=== PATIENT | male | born 1960 | race Hispanic/Latino ===

== ENCOUNTER → 2023-03-19 | Outpatient (CLI) | payer BC ==
[2023-03-19 12:30] LABS: HEMOGLOBIN A1C 6.6 % (4.0-6.0)
[2023-03-19 12:55] LABS: CHOLESTEROL 100 mg/dL (<200); HDL CHOLESTEROL 48 mg/dL (29-71); LDL DIRECT 51 mg/dL (0-99); TRIGLYCERIDES 108 mg/dL (30-200)
== END | disposition home or self-care (01) ==
LOC: LAB 11:09
PROVIDERS: ATTEND Student in an Organized Health Care Education/Training Program
DX: I25.118 Atherosclerotic heart disease of native coronary artery with other forms of angina pectoris (principal); I10 Essential (primary) hypertension
CPT/HCPCS: 36415; 80061; 83036

== ENCOUNTER → 2023-06-10 | Outpatient (CLI) | payer BC | END | disposition home or self-care (01) | LOC: SHCH 09:23 | PROVIDERS: ATTEND Student in an Organized Health Care Education/Training Program | DX: I10 Essential (primary) hypertension (principal); E78.5 Hyperlipidemia, unspecified; E11.9 Type 2 diabetes mellitus without complications | CPT/HCPCS: 93306 ==

== ENCOUNTER → 2023-08-18 | Outpatient (CLI) | payer BC | END | disposition home or self-care (01) | LOC: RAH 10:29 | PROVIDERS: ATTEND Internal Medicine | DX: K57.92 Diverticulitis of intestine, part unspecified, without perforation or abscess without bleeding (principal); M47.815 Spondylosis without myelopathy or radiculopathy, thoracolumbar region; I25.10 Atherosclerotic heart disease of native coronary artery without angina pectoris; R16.0 Hepatomegaly, not elsewhere classified; K76.0 Fatty (change of) liver, not elsewhere classified; K44.9 Diaphragmatic hernia without obstruction or gangrene | CPT/HCPCS: 74176 ==

== ENCOUNTER → 2024-02-11 | Outpatient (CLI) | payer BC ==
[2024-02-11 12:54] LABS: ALBUMIN 3.7 g/dL (3.5-5.0); BILIRUBIN,TOTAL 0.4 mg/dL (0.2-1.0); CREATININE 1.3 mg/dL (0.5-1.3); POTASSIUM 4.7 mmol/L (3.5-5.1); TOTAL PROTEIN, SERUM 6.8 g/dL (6.0-8.3)
[2024-02-11 13:04] LABS: HEMOGLOBIN A1C 7.4 % (4.0-6.0)
== END | disposition home or self-care (01) ==
LOC: LAB 08:44
PROVIDERS: ATTEND Student in an Organized Health Care Education/Training Program
DX: I11.9 Hypertensive heart disease without heart failure (principal); E11.9 Type 2 diabetes mellitus without complications
CPT/HCPCS: 36415; 80053; 80061; 83036

== ENCOUNTER → 2024-02-22 | Outpatient (CLI) | payer BC ==
[~2024-02-22] VITALS: Ht 165.1 cm; Wt 89.8 kg
[~2024-02-22] MED LIST: ALPR0.255 PO; ASPI-1443 PO; ATOR-2 PO; CARV12.511 PO; CLON0.1T PO; CLOP-31 PO; HYDR-4068 PO; HYDR25TA PO; IBUP-2071 PO; LISI40TA9 PO; METF-446 PO; PANT40TA54 PO; TRAMADOL PO
[2024-02-22 12:26] VITALS: BP 137/70; PULSE 50; RESP 18; TEMP 98.1
[2024-02-22 12:40] LABS: BASOPHILS # (AUTO) 0.01 K/uL (0.00-0.20); BASOPHILS % (AUTO) 0.1 % (0.0-5.0); EOSINOPHILS # (AUTO) 0.12 K/uL (0.00-0.70); EOSINOPHILS % (AUTO) 1.7 % (0.0-8.0); HEMATOCRIT 31.1 % (42-54); IMMATURE GRANULOCYTE ABSOLUTE 0.01 K/uL (0-1); LYMPHOCYTES # (AUTO) 1.6 K/uL (1.0-4.8); LYMPHOCYTES % (AUTO) 23.3 % (21.0-51.0); MEAN CORPUSCULAR HEMOGLOBIN 25.6 pg (27.0-33.0); MEAN CORPUSCULAR HGB CONC 31.2 g/dL (32.0-36.0); MEAN CORPUSCULAR VOLUME 82.1 fL (79-99); MONOCYTES # (AUTO) 0.6 K/uL (0.1-1.0); MONOCYTES % (AUTO) 8.3 % (3.0-13.0); NEUTROPHILS # (AUTO) 4.6 K/uL (1.8-7.7); NEUTROPHILS % (AUTO) 66.5 % (40.0-77.0); PLATELET COUNT (AUTO) 187 K/uL (130-400); RED BLOOD CELL COUNT(AUTO) 3.79 MIL/uL (4.50-6.20); RED CELL DISTRIBUTION WIDTH 16.6 % (11.0-15.5); WHITE BLOOD COUNT (AUTO) 6.9 K/uL (4.8-10.8)
--- NOTE | 2024-02-22 12:40 | EKG ---
[facility] Test Date: 2024-02-22 Test Time: 13:06:49 Pat Name: VERA BOSCH Department: [facility], [facility]–1983 Room: Gender: M Brain Picker: [id number] : 1960 Requested By: NELIA TITUS Order Number: [id number] Reading MD: Lucy Mcclure Measurements Intervals [place] Rate: 52 P: 48 SC: 208 QRS: 50 QRSD: 83 T: 72 QT: 437 QTc: 406 Interpretive Statements Sinus rhythm Posterior infarct, old No previous ECG available for comparison Electronically Signed On 02-23-2024 05:14:24 SENIOR SALES COMPENSATION ANALYST by Lucy Mcclure Please click the below link to view image of tracing.
[2024-02-22 12:54] LABS: CREATININE 1.5 mg/dL (0.5-1.3); POTASSIUM 4.4 mmol/L (3.5-5.1)
[2024-02-22 12:56] LABS: INR 1.02 (0.85-1.15)
[2024-02-22 12:57] LABS: PARTIAL THROMBOPLASTIN TIME 25.1 SEC (26.3-35.5)
[2024-02-22 13:00] LABS: B-TYPE NATRIURETIC PEPTIDE 168 pg/mL (0-100)
--- NOTE | 2024-02-22 13:02 | HMCIMG ---
Widely windowing by REASON: Surgical clearance COMPARISON: None FINDINGS: Single view of the chest was obtained. Lungs are clear. Heart size is normal. There is no pulmonary vascular congestion. Mediastinum and bony thorax appear unremarkable. There has been a previous sternotomy. IMPRESSION: 1. No acute process seen in the chest.
--- NOTE | 2024-02-23 11:49 | NUR ---
RE: LABS REPORTED BUN 21, CREAT 1.[address] NELIA TITUS. RECEIVED ORDERS TO RESCHEDULE PROCEDURE FOR 03/24/24.
== END | disposition home or self-care (01) ==
LOC: DAH 10:00 → EDSTATUS 03-24 09:00
PROVIDERS: ATTEND Student in an Organized Health Care Education/Training Program
DX: Z01.818 Encounter for other preprocedural examination (principal); I25.10 Atherosclerotic heart disease of native coronary artery without angina pectoris; R94.31 Abnormal electrocardiogram [ECG] [EKG]
CPT/HCPCS: 36415; 71045; 80048; 83880; 85025; 85610; 85730; 93005

== ENCOUNTER 2024-03-30 09:37 | Day surgery (SDC) | payer BC ==
[2024-03-28 12:47] LABS: BASOPHILS # (AUTO) 0.02 K/uL (0.00-0.20); BASOPHILS % (AUTO) 0.3 % (0.0-5.0); EOSINOPHILS % (AUTO) 1.4 % (0.0-8.0); HEMATOCRIT 34.1 % (42-54); IMMATURE GRANULOCYTE ABSOLUTE 0.02 K/uL (0-1); LYMPHOCYTES # (AUTO) 2.1 K/uL (1.0-4.8); LYMPHOCYTES % (AUTO) 28.4 % (21.0-51.0); MEAN CORPUSCULAR HGB CONC 30.8 g/dL (32.0-36.0); MEAN CORPUSCULAR VOLUME 81.2 fL (79-99); MONOCYTES # (AUTO) 0.6 K/uL (0.1-1.0); MONOCYTES % (AUTO) 8.6 % (3.0-13.0); NEUTROPHILS # (AUTO) 4.5 K/uL (1.8-7.7); PLATELET COUNT (AUTO) 198 K/uL (130-400); WHITE BLOOD COUNT (AUTO) 7.3 K/uL (4.8-10.8)
[2024-03-28 12:58] LABS: CREATININE 1.4 mg/dL (0.5-1.3); POTASSIUM 4.6 mmol/L (3.5-5.1)
[2024-03-28 13:02] LABS: INR 0.96 (0.85-1.15); PROTHROMBIN TIME 10.8 SEC (9.6-11.6)
[2024-03-28 13:04] LABS: PARTIAL THROMBOPLASTIN TIME 24.8 SEC (26.3-35.5)
[2024-03-28 13:19] LABS: B-TYPE NATRIURETIC PEPTIDE 76 pg/mL (0-100)
[2024-03-28 13:48] VITALS: BP 124/71; PULSE 55; RESP 18; TEMP 98
--- NOTE | 2024-03-28 13:49 | EKG ---
[facility] Test Date: 2024-03-28 Test Time: 13:35:14 Pat Name: VERA BOSCH Department: [facility] Room: Gender: M Nuclear Supervising Operator: [id number] : 1960 Requested By: NELIA TITUS Order Number: [id number] Reading MD: Byron Zaragoza Measurements Intervals [place] Rate: 57 P: 25 DC: 216 QRS: 48 QRSD: 83 T: 67 QT: 409 QTc: 399 Interpretive Statements Sinus rhythm Borderline prolonged DC interval Compared to ECG 02/22/2024 13:06:49 Myocardial infarct finding no longer present Electronically Signed On 03-28-2024 20:58:29 ADVERTISING SALES REPRESENTATIVE by Byron Zaragoza Please click the below link to view image of tracing.
--- NOTE | 2024-03-28 14:53 | HMCIMG ---
CHEST 1VW HISTORY: Preop COMPARISON: 02/22/2024 FINDINGS: A frontal projection of the chest was obtained. No acute pulmonary infiltrates is seen. The heart is normal in size. Prominent interstitial markings are seen. Degenerative changes are seen. Aortic calcifications are seen. IMPRESSION: 1. No acute pulmonary infiltrate is seen.
--- NOTE | 2024-03-29 11:34 | NUR ---
REPORT REPORTED CREAT AND H&H TO DR Usman TITUS. OK TO PROCEED
[2024-03-30] VITALS (16 sets, daily range): BP systolic 125–156; BP diastolic 55–82; PULSE 47–53; RESP 16–18; TEMP 97.2–1407.6
[~2024-03-30] VITALS: Ht 165.1 cm; Wt 87.1 kg
[2024-03-30] MEDS: 0.9%NACL 1000ML 1,000 ML IV SCH (10:49)
[2024-03-30] MEDS ORDERED: LIDOCAINE HCL 400MG/20ML VIAL ONE (11:28)
[2024-03-30] MEDS ORDERED: IOHEXOL 350 MG/ML 100ML INFUS..BTL IV ONE (11:29)
[2024-03-30] MEDS ORDERED: HEParin 10,000 UNIT/10ML (1,000 UNIT/ML) VIAL ONE (11:29)
[2024-03-30] MEDS ORDERED: HEParin-NS 1,000 UNIT/500 ML 1,000 ML IV ONE (11:29)
[2024-03-30] MEDS ORDERED: VERAPAMIL HCL 2.5 MG/ML VIAL ONE (11:29)
[2024-03-30] MEDS ORDERED: NITROGLYCERIN 50MG VIAL ONE (11:29)
[2024-03-30] MEDS ORDERED: FENTanyl CITRate PF 50 MCG/1 ML 2ML VIAL ONE (11:53)
[2024-03-30] MEDS ORDERED: MIDAZOLAM HCL 1 MG/ML 2ML VIAL ONE ×2 (11:53→12:38)
--- NOTE | 2024-03-30 13:27 | PRN ---
PROCEDURE REPORT DATE OF PROCEDURE: Mar 30, 2024 ORACLE HYPERION CONSULTANT: [ Thee chandra MD] PROCEDURE PERFORMED: Conscious sedation Ultrasound guided left radial artery access Selective left coronary artery angiogram Selective right coronary artery angiogram Left heart catheterization Left subclavian angiogram YIN to LAD angiography SVG to OM angiography SVG to PDA angiography TR band 13 juliette over right radial artery INDICATION: Chest pain DESCRIPTION OF PROCEDURE: After informed consent was obtained, the patient was prepped and draped in the usual sterile fashion. A 6 Chinese arterial sheath was inserted in the LEFT radial artery using ultrasound guidance with first pass wall puncture. The arterial sheath was aspirated and flushed. We have asked 035 wire into the left subclavian into the ascending aorta under fluoroscopic guidance. We then advanced a five Chinese Bartorelli cathter which was advanced to the left subclavian artery followed by an angiographic image of the left subclavian. We then used the Bartorelli catheter to selectively engage the YIN followed by multiple angiographic images . We exchanged the diagnostic catheter for a A 6 Chinese JL 3.5 was then advanced to the ascending aorta over an exchange length J-tip guidewire, was aspirated and flushed, and was used for selective coronary angiograms in multiple obliquities. A JR-4 was advanced in a similar fashion to the ascending aorta over the J-tipped guidewire and was used for selective right coronary angiograms in multiple oblique views with findings as outlined below. The JR-4 catheter advanced into the LV and pressures were obtained with a pull- back across the aortic valve. We then used the JR4 catheter selecting gaze SVG to PDA graft followed by angiographic images. We then used the same JR4 catheter selecting gaze SVG to OM graft followed by multiple angiographic images. Following review of all the studies the decision was made to terminate the procedure and proceed with medical management. All wires and catheters removed and A TR band was placed over right radial artery. Patient tolerated procedure well with no postprocedure complications transfer rags laborer holding in stable condition FLUOROSCOPY TIME: 7.7 min LEFT HEART HEMODYNAMICS: LVEDP 8 mm Hg and no gradient Ao CORONARY ANGIOGRAM: LEFT MAIN: Patent and 0% stenosis. Gives rise to LCx and LAD. LEFT ANTERIOR DESCENDING: Large vessel giving rise to two Diagonal branches. Small-vessel becoming heavily calcified in the mid segment followed by 100% LABORER CHEMICAL PROCESSING. LAD is small approximately 2 mm in diameter. D1 and D2 are small and widely patent LEFT CIRCUMFLEX: Large and gives rise to two OM branches. Heavily calcified with 100% LABORER CHEMICAL PROCESSING of the proximal segment. OMs fill via collateral flow via the SVG graft. OM2 has a 90% proximal stenosis and feels via patent graft RIGHT CORONARY ARTERY: Large, dominant vessel giving rise to PDA and PL branches. Heavily calcified with a patent proximal stent with 40% ISR becoming 100% LABORER CHEMICAL PROCESSING of the mid segment. LEFT SUBCLAVIAN: Widely patent GRAFT ANATOMY: YIN-LAD: Small graft diameter and is widely patent SVG-OM: Patent was sluggish flow due to a kink in the mid segment. SVG-PDA: Widely patent HEMOSTASIS: TR band 12 juliette over right radial artery INTERVENTIONS: None. COMPLICATIONS: None FINDINGS: Normal coronary anatomy with severe multivessel Coronary Artery Disease and patent YIN to LAD, SVG to OM2, and SVG to PDA ESTIMATED BLOOD LOSS: 5 cc RECOMMENDATIONS/INSTRUCTIONS: Aggressive risk factor modification along with prolonged dropped and high- intensity statin therapy and beta-you We will consider exercise treadmill stress test and if there is any evidence of ischemia we will consider staged revascularization of his SVG to OM kink. CONTRAST DELIVERED TO PATIENT (mL): 140cc MD TACHO Cheung JAMES R MD Mar 30, 2024 13:27
[2024-03-30] MEDS ORDERED: 0.9%NACL 1000ML 1,000 ML IV SCH (13:30)
[2024-03-30] MEDS ORDERED: GLUCAGON 1MG KIT 1 MG ML IM PRN (13:30)
[2024-03-30] MEDS ORDERED: DEXTROSE 50%-WATER 50 ML DISP.SYRIN IV PRN (13:30)
--- NOTE | 2024-03-30 14:15 | NUR ---
HANDOFF REPORT RECEIVED REPORT FROM SHARI BARRIOS AT BEDSIDE USING SBAR. PATIENT S/P LHC, VASC BAND TO LEFT WRIST. NO BLEEDING OR HEMATOMA NOTED. SPOUSE AT BEDSIDE. VITAL SIGNS STABLE, NO C/O PAIN.
[2024-03-30] MEDS ORDERED: acetaMINOPHEN 325 MG TAB ONE (16:37)
[2024-03-30] MEDS: acetaMINOPHEN 325 MG TAB PO ONE (16:44)
--- NOTE | 2024-03-30 17:30 | NUR ---
PATIENT DISCHARGED FROM FACILITY VIA WHEELCHAIR BY SHARI KINGSTON AND ASSISTED INTO PRIVATE VEHICLE DRIVEN BY SPOUSE
== END 2024-03-30 17:30 | disposition home or self-care (01) ==
LOC: DAH 09:37
PROVIDERS: ATTEND Student in an Organized Health Care Education/Training Program
DX: I25.118 Atherosclerotic heart disease of native coronary artery with other forms of angina pectoris (principal); I25.82 Chronic total occlusion of coronary artery; I49.3 Ventricular premature depolarization; E78.5 Hyperlipidemia, unspecified; I11.9 Hypertensive heart disease without heart failure; E11.9 Type 2 diabetes mellitus without complications; I25.2 Old myocardial infarction; Z98.890 Other specified postprocedural states; Z90.49 Acquired absence of other specified parts of digestive tract; Z82.49 Family history of ischemic heart disease and other diseases of the circulatory system; Z83.3 Family history of diabetes mellitus; Z82.3 Family history of stroke; Z79.01 Long term (current) use of anticoagulants; Z95.5 Presence of coronary angioplasty implant and graft; Z95.1 Presence of aortocoronary bypass graft; Z79.84 Long term (current) use of oral hypoglycemic drugs; Z79.82 Long term (current) use of aspirin; Z79.899 Other long term (current) drug therapy
CPT/HCPCS: 80048; 83880; 85025; 85610; 85730; 71045; 93005; 93459; 82948; C1769; C1887; C1894 ×2; A4649; Q9965 ×2; J3010; J3490 ×3; J7030; J1644 ×2; J2250 ×2; Q9967; A4215; A4222; A4221; A4663; A4216; A4606; A4223 ×3; 99156; 99157

== ENCOUNTER 2024-04-01 11:41 | Observation (INO) | payer BC ==
[~2024-04-01] VITALS: Ht 165.1 cm; Wt 88.5 kg
--- NOTE | 2024-04-01 11:54 | ERN ---
ED Note History of Present Illness Stated Complaint: CP Chief Complaint: Chest Pain Time Seen by MD: 11:48 Dictation: PATIENT IS A 63-YEAR-OLD MALE COMING IN TODAY WITH CHEST PAIN PRESSURE TO HIS LEFT CHEST ONSET LAST NIGHT AT 21:00 HOURS WHILE HE WAS IN BED. HE DENIES ANY RADIATION NO SHORTNESS A BREATH STATES THE PAIN CURRENTLY IS NINE OVER A 10. HE STATES HE HAS A HISTORY OF CAD WITH CABG X3 IN THE PAST, HAD A HEART CATHETERIZATION LAST MONTH AT BY DR. NELIA TITUS. HE STATES HE DID TAKE A NITROGLYCERIN THIS MORNING WHICH HE SAID HELPED A LOT. PATIENT STATES HE CURRENTLY TAKES ASPIRIN DAILY WITH PLAVIX Allergies: Coded Allergies: No Known Drug Allergies (Unverified Allergy, Unknown, 02/22/24) Home Meds Active Scripts Acetaminophen with Codeine (Acetaminophen-Cod #3 Tablet) 300 Mg-30 Mg Tablet, 1 TAB PO Q4H PRN for MODERATE TO SEVERE PAIN, #12 TAB 0 Refills Prov:SANDY JAMES NP 04/01/24 Reported Medications [Tramadol] No Conflict Check, 50 MG PO QID PRN for PAIN 02/22/24 Aspirin (Aspirin EC) 81 Mg Tablet., 1 TAB PO DAILY for 30 Days, #30 TAB 0 Refills 02/22/24 Clopidogrel Bisulfate (Plavix) 75 Mg Tablet, 1 TAB PO DAILY for 30 Days, #30 TAB 0 Refills 02/22/24 Atorvastatin Calcium (Atorvastatin Calcium) 80 Mg Tablet, 1 TAB PO DAILY for 30 Days, #30 TAB 0 Refills 02/22/24 Ibuprofen (Ibuprofen) 800 Mg Tablet, 1 TAB PO TID for pain for 10 Days, #30 TAB 0 Refills 02/22/24 Pantoprazole Sodium (Pantoprazole Sodium) 40 Mg Tablet., 1 TAB PO DAILY for 30 Days, #30 TAB 0 Refills 02/22/24 Hydrochlorothiazide (Hydrochlorothiazide) 25 Mg Tablet, 1 TAB PO DAILY for 30 Days, #30 TAB 0 Refills 02/22/24 Metformin HCl (Metformin HCl) 1,000 Mg Tablet, 1 TAB PO BID for 30 Days, #60 TAB 0 Refills 02/22/24 Hydrocodone/Acetaminophen (Hydrocodon-Acetaminophn 10-325) 10 Mg-325 Mg Tablet, 1 TAB PO Q6HPRN PRN for pain for 5 Days, #20 TAB 0 Refills 02/22/24 Clonidine HCl (Clonidine HCl) 0.1 Mg Tablet, 1 TAB PO QID PRN for ADMINISTER FOR SBP > 180 for 30 Days, #30 TAB 0 Refills 02/22/24 Carvedilol (Carvedilol) 12.5 Mg Tablet, 1 TAB PO BID for 30 Days, #60 TAB 0 Refills 02/22/24 Alprazolam (Alprazolam) 0.25 Mg Tablet, 1 TAB PO HS PRN for anxiety for 30 Days, #60 TAB 0 Refills 02/22/24 Lisinopril (Lisinopril) 40 Mg Tablet, 40 MG PO BID, TAB 02/22/24 Past Medical History Past Medical History: CAD Surgical History: CABG RN Note Reviewed/Agreed w/PFSH: Yes Review of System Dictation CONSTITUTIONAL: NEGATIVE EXCEPT FOR HPI HEAD/FACE: NEGATIVE EXCEPT FOR HPI EENT: NEGATIVE EXCEPT FOR HPI RESPIRATORY: NEGATIVE EXCEPT FOR HPI LEFT CHEST PAIN/PRESSURE GASTROINTESTINAL/ABDOMINAL: NEGATIVE EXCEPT FOR HPI GENITOURINARY: NEGATIVE EXCEPT FOR HPI MUSCULOSKELETAL: NEGATIVE EXCEPT FOR HPI INTEGUMENTARY: NEGATIVE EXCEPT FOR HPI NEUROLOGICAL/PSYCH: NEGATIVE EXCEPT FOR HPI HEMATOLOGIC/LYMPHATIC: NEGATIVE EXCEPT FOR HPI ALL SYSTEMS NEGATIVE, EXCEPT NOTED ABOVE. 13 POINT REVIEW OF SYSTEMS ASSESSED AND ALL NEGATIVE EXCEPT FOR ABOVE. Initial Vital Sign VS Vital Signs Date Time Temp Pulse Resp B/P (MAP) Pulse Ox O2 Delivery O2 Flow Rate FiO2 04/01/24 11:49 98.2 57 18 119/61 99 04/01/24 13:38 Nasal Cannula* 2 28 Physical Exam Dictation VITAL SIGNS REVIEWED GENERAL APPEARANCE: ALERT, ORIENTED X 3, MODERATE ACUTE DISTRESS, WELL DEVELOPED, NOURISHED. HEAD AND FACE: NON-TRAUMATIC. EYES: PERRL, PINK CONJUNCTIVAS, EYELID NO TRAUMA, ANTERIOR CHAMBER WITH ARCUS SENILIS. EARS: PINNAS INTACT AND NO SIGNS OF TRAUMA OR ERYTHEMA EAR CANALS CLEAR AND NO DISCHARGE TM NO ERYTHEMA NOSE: NO DISCHARGE, NO BLEEDING. OROPHARYNX: MOUTH NORMAL, TONGUE PINK, PHARYNX CLEAR,NO ERYTHEMA, TONSILS NO EXUDATES, NO ABSCESSES NOTED, MUCOUS MEMBRANE MOIST NECK: SUPPLE, NON-TENDER, NO THYROMEGALY, NO MASSES, NO JVD, NO BRUITS BREAST:DEFERRED CHEST:NO TENDERNESS, NO CREPITUS, NO PARADOXICAL MOVEMENT, NO RETRACTIONS LUNGS:CLEAR, WELL-VENTILATED, SYMMETRIC, NO RALES, NO WHEEZING, NO RHONCHI, NO STRIDOR, GOOD BREATH SOUNDS BILATERALLY HEART: REGULAR RATE, REGULAR RHYTHM, NO MURMUR, NO GALLOPS VASCULAR: NO PERIPHERAL EDEMA, ABDOMEN: SOFT, POSITIVE BOWEL SOUNDS, NONDISTENDED, NO GUARDING, NONTENDER, NO REBOUND, NO MASSES NO HEPATOMEGALY, NO SPLENOMEGALY, NO HUANG'S SIGN, NO HERNIAS. RECTAL: DEFERRED GENITAL: DEFERRED NEUROLOGICAL: NORMAL SPEECH, MOTOR FUNCTION INTACT, SENSORY FUNCTION INTACT MUSCULOSKELETAL: NECK NONTENDER, FULL RANGE OF MOTION, BACK NONTENDER, FULL RANGE OF MOTION, EXTREMITIES: NONTENDER, FULL RANGE OF MOTION SKIN: COLOR PINK, DRY, NO TURGOR, NO RASH, NO LACERATIONS, NO ABRASIONS, NO CONTUSIONS. LYMPHATIC: DEFERRED Results (Laboratory/Radiology) Laboratory/Radiology Laboratory Tests Test 04/01/24 12:10 04/01/24 15:00 White Blood Count 7.3 K/uL (4.8-10.8) Red Blood Count 4.27 MIL/uL (4.50-6.20) L Hemoglobin 10.6 g/dL (14.0-18.0) L Hematocrit 33.7 % (42-54) L Mean Corpuscular Volume 78.9 fL (79-99) L Mean Corpuscular Hemoglobin 24.8 pg (27.0-33.0) L Mean Corpuscular Hemoglobin Concent 31.5 g/dL (32.0-36.0) L Red Cell Distribution Width 14.7 % (11.0-15.5) Platelet Count 212 K/uL (130-400) Mean Platelet Volume 11.3 fL (7.5-10.5) H Immature Granulocyte % (Auto) 0.3 % (0-1) Neutrophils (%) (Auto) 68.3 % (40.0-77.0) Lymphocytes (%) (Auto) 23.0 % (21.0-51.0) Monocytes (%) (Auto) 6.3 % (3.0-13.0) Eosinophils (%) (Auto) 1.8 % (0.0-8.0) Basophils (%) (Auto) 0.3 % (0.0-5.0) Neutrophils # (Auto) 5.0 K/uL (1.8-7.7) Lymphocytes # (Auto) 1.7 K/uL (1.0-4.8) Monocytes # (Auto) 0.5 K/uL (0.1-1.0) Eosinophils # (Auto) 0.13 K/uL (0.00-0.70) Basophils # (Auto) 0.02 K/uL (0.00-0.20) Absolute Immature Granulocyte (auto 0.02 K/uL (0-1) Nucleated Red Blood Cells 0.0 % (0.0-0.19) Sodium Level 141 mmol/L (136-145) Potassium Level 4.6 mmol/L (3.5-5.1) Chloride Level 104 mmol/L (101-111) Carbon Dioxide Level 26 mmol/L (21-32) Blood Urea Nitrogen 23 mg/dL (7-18) H Creatinine 1.7 mg/dL (0.5-1.3) H Glomerular Filtration Rate Calc 45 mL/min (>90) Random Glucose 126 mg/dL (70-105) H Total Calcium 9.8 mg/dL (8.5-10.1) Magnesium Level 1.60 mg/dL (1.80-2.40) L Troponin I High Sensitivity 6 ng/L (4-75) 7 ng/L (4-75) B-Type Natriuretic Peptide 55 pg/mL (0-100) CHEST 1VW HISTORY: Chest pain COMPARISON: 03/28/2024 FINDINGS: A frontal projection of the chest was obtained. No acute pulmonary infiltrates is seen. Poststernotomy changes are seen. The heart is enlarged. Degenerative changes of the thoracolumbar spine are present. Prominent interstitial markings are seen. Aortic calcifications are seen. IMPRESSION: 1. No acute pulmonary infiltrate is seen. Labs Reviewed?: Yes EKG Comment: EKG SINUS BRADYCARDIA/HEART RATE 53/AXIS NORMAL/NO ECTOPY 1537, 2ND EKG SINUS RHYTHM WITH DC [id number] MILLISECOND/HEART RATE NO ACUTE CHANGES 52 HEART SCORE IS TWO ED Course ED Course Orders Procedure Category Date Status Time Cbc With Differential LAB 04/01/24 Complete 11:50 B-Type Natriuretic LAB 04/01/24 Complete Peptide 11:50 Chest 1vw RAD 04/01/24 Resulted 11:50 12 Lead Ekg Tracing- EKG 04/01/24 Logged Technical 11:50 Nitroglycerin 0.4mg PHA 12/21/24 In Process Sl Tab (Nitrostat) 12:00 Magnesium LAB 04/01/24 Complete 11:50 Troponin I High LAB 04/01/24 Complete Sensitivity 11:50 Basic Metabolic Panel LAB 04/01/24 Complete 11:50 Morphine 2mg Syg PHA 04/01/24 Complete (Morphine 2mg Syg) 12:00 Ondansetron 4mg Inj PHA 04/01/24 Complete (Zofran 4mg Inj) 12:00 Magnesium 2gm Premix PHA 04/01/24 In Process 50ml (Magnesium 2gm 13:00 Troponin I High LAB 04/01/24 Complete Sensitivity 14:25 12 Lead Ekg Tracing- EKG 04/01/24 Logged Technical 14:25 Ibuprofen 800 Mg Tab PHA 04/01/24 In Process (Motrin) 16:00 Current Medications Medications (Trade) Dose Ordered Sig/Chicho Route PRN Reason Start Time Stop Time Status Last Admin Dose Admin Ibuprofen (moTRIN) 800 mg ONCE ONCE PO 04/01/24 16:00 04/01/24 16:01 Magnesium Sulfate 50 ml @ 0 mls/hr PROTOCOL IV 04/01/24 13:00 05/01/24 12:59 04/01/24 15:11 Morphine Sulfate (morPHINE 2MG SYG) 2 mg ONCE ONCE IVP 04/01/24 12:00 04/01/24 12:01 DC 04/01/24 12:23 Nitroglycerin (Nitrostat) 0.4 mg Q5M PRN SL CHEST PAIN 04/01/24 12:00 04/01/24 12:23 Ondansetron HCl (zoFRAN 4MG INJ) 4 mg ONCE ONCE IVP 04/01/24 12:00 04/01/24 12:01 DC 04/01/24 12:22 Vital Signs Date Time Temp Pulse Resp B/P (MAP) Pulse Ox O2 Delivery O2 Flow Rate FiO2 04/01/24 13:38 53 18 96/55 98 Nasal Cannula* 2 28 04/01/24 11:49 98.2 57 18 119/61 99 16:00 HOURS, WE WILL PAGED DR. GOTTI FOR FURTHER GUIDELINES. PATIENT STATES THAT HE HAD HAD A HEART CATHETERIZATION LAST WEEK BY DR. TITUS AND WAS TOLD HE HAD MULTIPLE SEVERELY OCCLUDED VESSELS AND THAT IF THE PAIN GOT WORSE TO COME TO THE HOSPITAL, HE STATES HE SPOKE WITH DR. FROST OFFICE THIS MORNING AND WAS ADVISED TO COME TO THE EMERGENCY ROOM TO SEE DR. GOTTI. HEART Score Response (Comments) Value History: Low suspicion (0) 0 Age: > 65yrs (+2) 2 Initial Troponin: Normal limit (0) 0 Total 2 Medical Decision Making MDM MDM: DIFFERENTIAL DIAGNOSIS: ACS/AMI/HYPOMAGNESEMIA/ELECTROLYTE IMBALANCE/DEHYDRA DEHYDRATION/PNEUMONIA/BRONCHITIS RATIONALE: TESTS CONSIDERED AND ORDERED SECONDARY TO SHARED DECISION MAKING INCLUDE: EKG/LABS/RADIOLOGY PREVIOUS OUTSIDE RECORDS REVIEWED: OLD ER VISITS. REVIEWED RISK OF COMPLICATION AND/OR MORBIDITY OR MORTALITY OF PATIENT MANAGEMENT: NONE MEDICATIONS-PER MEDICATION RECONCILIATION NEED FOR HOSPITALIZATION: PATIENT DOES NOT MEET CRITERIA FOR HOSPITALIZATION. NO PATIENT REFUSED NEED FOR EMERGENCY MAJOR/MINOR SURGERY: NO THERE ARE NO SOCIAL CONCERNS WITH THIS PATIENT. PRESCRIPTION DRUG MANAGEMENT IBUPROFEN PRESCRIPTIONS WILL INCLUDE SYMPTOMATIC CARE PATIENT'S PRIOR EXTERNAL MEDICAL RECORDS FROM OTHER ER VISITS WERE REVIEWED BY ME INDICATED. PRIOR TESTING AND RESULTS FROM PREVIOUS VISITS WERE REVIEWED. PRIOR TESTS WERE TAKEN INTO ACCOUNT WITH MEDICAL DECISION MAKING AND RESOURCE UTILIZATION, INDEPENDENT HISTORIAN/HISTORIANS WERE USED TO OBTAIN COMPLETE MEDICAL HISTORY. I INDEPENDENTLY INTERPRETED THE TEST THAT WERE PERFORMED, RESULTS WERE REVIEWED BY ME AND CONSIDERED FINDINGS ON RADIOLOGY IF ORDERED. MEDICAL MANAGEMENT AND EXAMINATION INTERPRETATION DISCUSSIONS WERE HAD BY ME WITH OTHER QUALIFIED HEALTHCARE PROFESSIONALS INDICATED FOR THE PATIENT'S CARE. DX & DISP Disposition: Discharge Departure Impression: Primary Impression: Hypomagnesemia Additional Impressions: Chronic kidney disease, Chronic anemia Condition: Stable Scripts Acetaminophen with Codeine (Acetaminophen-Cod #3 Tablet) 300 Mg-30 Mg Tablet 1 TAB PO Q4H PRN for MODERATE TO SEVERE PAIN, #12 TAB 0 Refills Prov: SANDY JAMES ELECTROCARDIOGRAPH OPERATOR 04/01/24 Additional Instructions: Follow-up with primary care provider in 1 to 2 days. Take medications as directed here in the emergency room. Okay to continue home medications unless otherwise discussed during your visit in the emergency room today. Return to your nearest emergency room if symptoms worsen or if there is no improvement. Call 911 if you need immediate assistance. Take Tylenol or Motrin [id number] as needed and if no contraindications are present. Increase oral hydration. A wound culture or urine culture was ordered here in the emergency room department please follow-up with primary care provider and advise them to get repeat ports from our facility. If you had any Zaki wrap/splints that were applied here, please do not remove them until you see your primary care or specialty. Follow up with your primary care doctor in 1-2 days. Referrals: SARMAD MACIAS MD (PCP) Time of Disposition: 15:51 SANDY JAMES NP Apr 01, 2024 11:54 LENORE HUGHES MD Apr 01, 2024 16:02
[2024-04-01] MEDS: ondanSETRON 4MG INJ IVP ONE (12:22)
[2024-04-01 12:23] LABS: BASOPHILS # (AUTO) 0.02 K/uL (0.00-0.20); BASOPHILS % (AUTO) 0.3 % (0.0-5.0); EOSINOPHILS # (AUTO) 0.13 K/uL (0.00-0.70); EOSINOPHILS % (AUTO) 1.8 % (0.0-8.0); HEMATOCRIT 33.7 % (42-54); IMMATURE GRANULOCYTE ABSOLUTE 0.02 K/uL (0-1); LYMPHOCYTES # (AUTO) 1.7 K/uL (1.0-4.8); MEAN CORPUSCULAR HEMOGLOBIN 24.8 pg (27.0-33.0); MEAN CORPUSCULAR HGB CONC 31.5 g/dL (32.0-36.0); MEAN CORPUSCULAR VOLUME 78.9 fL (79-99); MONOCYTES # (AUTO) 0.5 K/uL (0.1-1.0); MONOCYTES % (AUTO) 6.3 % (3.0-13.0); NEUTROPHILS % (AUTO) 68.3 % (40.0-77.0); PLATELET COUNT (AUTO) 212 K/uL (130-400); RED BLOOD CELL COUNT(AUTO) 4.27 MIL/uL (4.50-6.20); RED CELL DISTRIBUTION WIDTH 14.7 % (11.0-15.5); WHITE BLOOD COUNT (AUTO) 7.3 K/uL (4.8-10.8)
[2024-04-01] MEDS: NITROGLYCERIN 0.4 MG SL TAB SL PRN (12:23)
[2024-04-01] MEDS: morPHINE 2 MG SYG IVP ONE (12:23)
--- NOTE | 2024-04-01 12:25 | HMCIMG ---
CHEST 1VW HISTORY: Chest pain COMPARISON: 03/28/2024 FINDINGS: A frontal projection of the chest was obtained. No acute pulmonary infiltrates is seen. Poststernotomy changes are seen. The heart is enlarged. Degenerative changes of the thoracolumbar spine are present. Prominent interstitial markings are seen. Aortic calcifications are seen. IMPRESSION: 1. No acute pulmonary infiltrate is seen.
[2024-04-01 12:35] LABS: CREATININE 1.7 mg/dL (0.5-1.3); MAGNESIUM 1.6 mg/dL (1.80-2.40); POTASSIUM 4.6 mmol/L (3.5-5.1)
[2024-04-01 12:50] LABS: B-TYPE NATRIURETIC PEPTIDE 55 pg/mL (0-100)
[2024-04-01] MEDS: MAGNESIUM 2GM PREMIX 50ML 50 ML IV SCH (15:11)
[2024-04-01] MEDS ORDERED: ACET-2079 PO (15:52)
[2024-04-01] MEDS ORDERED: PoTASSium chl 10% ELIXIR 20MEQ 20 MEQ/15 ML UDCUP PO PRN (17:00)
[2024-04-01] MEDS ORDERED: PoTASSium chloRIDE 20MEQ ER 20 MEQ ERTAB PO PRN (17:00)
[2024-04-01] MEDS ORDERED: PoTASSium chloRIDE 20MEQ/100ML 100 ML IV PRN (17:00)
--- NOTE | 2024-04-01 17:20 | NUR ---
DR GOTTI AT BEDSIDE
[2024-04-01] MEDS: morPHINE 2 MG SYG IVP PRN (17:33)
[2024-04-01] MEDS: ibuPROFEN 800 MG TAB PO ONE (17:33)
[2024-04-01] MEDS ORDERED: ISOS60TA77 PO (17:43)
[2024-04-01] MEDS ORDERED: RANO500T2 PO (17:43)
[2024-04-01] MEDS: 0.9%NACL 1000ML 1,000 ML IV SCH (17:57)
[2024-04-01] MEDS: RANOLAZINE 500 MG TAB.SR.12H PO SCH (17:58)
[2024-04-01] MEDS: ISOSORBIDE MONO 60MG SR TAB PO SCH (17:58)
--- NOTE | 2024-04-01 17:59 | CONS ---
[facility] CARDIOLOGY CONSULTATION REPORT Date Patient Seen: Apr 01, 2024 Time of Visit: 17:43 Requesting Physician: Dr. Grisel Posadas Reason for Consultation: Recurrent angina status post remote bypass surgery one year ago and status post recent cardiac catheterization 03/30/2024 (two days ago) demonstrating tortuosity within his vein graft History of Present Illness: This 63-year-old Latin-[place]er male, patient of Dr. 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 His symptoms of angina if worsened over the one month prior to admission and he underwent cardiac catheterization by Dr. Thee chandra demonstrating a patent YIN to the distal LAD with a 90% apical LAD stenosis in a small distal LAD, a patent saphenous vein graft to the PDA with excellent surgical revascularization to the distal right coronary, and a patent saphenous vein graft to the OM1 with spiral tortuosity within the midbody of the vein graft associated with mild filling defect of uncertain significance. The patient was managed medically and presented to the emergency room today because of a recurrent episode of discomfort that concerned him. In the ER and EKG demonstrated sinus bradycardia with no evidence of ischemia or infarct. Serial troponins were six with a repeat troponin of seven. Past Medical History: As outlined above and is summarized below Past Surgical History: Coronary artery bypass grafting only x3 vessels 02/15/2023 Family History: Noncontributory Social History: Noncontributory Habits: Denies illicit drug use Home Meds: Aspirin 81 mg p.o. daily Clopidogrel 75 mg p.o. daily Atorvastatin 80 mg p.o. daily Carvedilol 12.5 mg p.o. b.i.d. Lisinopril 40 mg p.o. b.i.d. Hydrochlorothiazide 25 mg p.o. daily NitroQuick 0.4 sublingual p.r.n. chest pain Metformin 1000 b.i.d. Pantoprazole 40 mg p.o. daily Review of Systems: CONST: No fever, fatigue, or weight changes. EYES: No recent vision problems. ENT: No congestion, ear pain, or sore throat. C/V: Chest pain as per HPI. No palpitations, or edema. RESP: No cough, congestion, wheezing or shortness of breath. GI: No abdominal pain, nausea, vomiting, constipation, or diarrhea. : No incontinence or dysuria. SKIN: No rash. NEURO: No headache, focal numbness or weakness, dizziness, or seizures. PSYCH: No depression or anxiety. HEME: No abnormal bruising or bleeding. LYMPH: No swollen glands. Physical Examination: GENERAL: No acute distress. HEAD: Normal with no signs of head trauma. EYES: PERRLA, EOMI, conjunctiva and sclera normal. ENT: Hearing grossly intact, normal oropharynx. NECK: Supple without JVD. There is no tenderness, lymphadenopathy, or masses. No thyromegaly. Normal carotid upstrokes without bruits. LUNGS: Evidence of median sternotomy incision. Clear breath sounds bilaterally. No wheezes, or rhonchi. HEART: Normal rate and rhythm. Normal S1 and S2 without murmurs, gallop or rub. VASC: Peripheral pulses +2 bilaterally. ABD: Bowel sounds normal, soft, nontender, no masses, no organomegaly. No audible bruits. : Not examined LYMPH: No lymphadenopathy noted. EXT: No clubbing, cyanosis or edema. SKIN: No rashes or lesions noted. NEURO: Awake, alert, and oriented x3. No focal sensory or strength deficits noted. Vital Signs (last 8hr) Date Time Temp Pulse Resp B/P (MAP) Pulse Ox O2 Delivery O2 Flow Rate FiO2 04/01/24 13:38 53 18 96/55 98 Nasal Cannula* 2 28 04/01/24 11:49 98.2 57 18 119/61 99 Laboratory: Hematology Labs: Test 04/01/24 12:10 Range/Units White Blood Count 7.3 4.8-10.8 K/uL Red Blood Count 4.27 L 4.50-6.20 MIL/uL Hemoglobin 10.6 L 14.0-18.0 g/dL Hematocrit 33.7 L 42-54 % Mean Corpuscular Volume 78.9 L 79-99 fL Mean Corpuscular Hemoglobin 24.8 L 27.0-33.0 pg Mean Corpuscular Hemoglobin Concent 31.5 L 32.0-36.0 g/dL Red Cell Distribution Width 14.7 11.0-15.5 % Platelet Count 212 130-400 K/uL Mean Platelet Volume 11.3 H 7.5-10.5 fL Immature Granulocyte % (Auto) 0.3 0-1 % Neutrophils (%) (Auto) 68.3 40.0-77.0 % Lymphocytes (%) (Auto) 23.0 21.0-51.0 % Monocytes (%) (Auto) 6.3 3.0-13.0 % Eosinophils (%) (Auto) 1.8 0.0-8.0 % Basophils (%) (Auto) 0.3 0.0-5.0 % Neutrophils # (Auto) 5.0 1.8-7.7 K/uL Lymphocytes # (Auto) 1.7 1.0-4.8 K/uL Monocytes # (Auto) 0.5 0.1-1.0 K/uL Eosinophils # (Auto) 0.13 0.00-0.70 K/uL Basophils # (Auto) 0.02 0.00-0.20 K/uL Absolute Immature Granulocyte (auto 0.02 0-1 K/uL Nucleated Red Blood Cells 0.0 0.0-0.19 % Chemistry Labs: Test 04/01/24 15:00 04/01/24 12:10 Range/Units Troponin I High Sensitivity 7 4-75 ng/L Sodium Level 141 136-145 mmol/L Potassium Level 4.6 3.5-5.1 mmol/L Chloride Level 104 101-111 mmol/L Carbon Dioxide Level 26 21-32 mmol/L Blood Urea Nitrogen 23 H 7-18 mg/dL Creatinine 1.7 H 0.5-1.3 mg/dL Glomerular Filtration Rate Calc 45 >90 mL/min Random Glucose 126 H 70-105 mg/dL Total Calcium 9.8 8.5-10.1 mg/dL Magnesium Level 1.60 L 1.80-2.40 mg/dL B-Type Natriuretic Peptide 55 0-100 pg/mL Diagnostics / Radiology: Left heart catheterization 03/30/2024: Dr. Thee Chandra: LEFT HEART HEMODYNAMICS: LVEDP 8 mm Hg and no gradient Ao CORONARY ANGIOGRAM: LEFT MAIN: Patent and 0% stenosis. Gives rise to LCx and LAD. LEFT ANTERIOR DESCENDING: Large vessel giving rise to two Diagonal branches. Small-vessel becoming heavily calcified in the mid segment followed by 100% RECOVERY ANALYST. LAD is small approximately 2 mm in diameter. D1 and D2 are small and widely patent LEFT CIRCUMFLEX: Large and gives rise to two OM branches. Heavily calcified with 100% RECOVERY ANALYST of the proximal segment. OMs fill via collateral flow via the SVG graft. OM2 has a 90% proximal stenosis and feels via patent graft RIGHT CORONARY ARTERY: Large, dominant vessel giving rise to PDA and PL branches. Heavily calcified with a patent proximal stent with 40% ISR becoming 100% RECOVERY ANALYST of the mid segment. LEFT SUBCLAVIAN: Widely patent GRAFT ANATOMY: YIN-LAD: Small graft diameter and is widely patent SVG-OM: Patent was sluggish flow due to a kink in the mid segment. SVG-PDA: Widely patent FINDINGS: Normal coronary anatomy with severe multivessel Coronary Artery Disease and patent YIN to LAD, SVG to OM2, and SVG to PDA RECOMMENDATIONS/INSTRUCTIONS: Aggressive risk factor modification along with prolonged dropped and high- intensity statin therapy and beta-you We will consider exercise treadmill stress test and if there is any evidence of ischemia we will consider staged revascularization of his SVG to OM kink. Impression and Plan: Recurrent progressive angina status post remote coronary artery bypass surgery x3 vessels 02/15/2023 with YIN to the LAD, saphenous vein graft to the OM1, and saphenous vein graft to the PDA: 3/3 grafts patent by follow-up cardiac catheterization 03/30/2024 with severe [place] three-vessel coronary artery disease with chronic occlusion of the mid LAD, chronic occlusion of the mid left circumflex, and chronic occlusion of the distal RCA: -Patent YIN graft to the distal LAD with 90% apical LAD stenosis and a small ongoing distal/apical LAD -Patent saphenous vein graft to the OM1 with spiral tortuosity in the midbody of the graft with associated mild sludge/filling defect of uncertain significance, with adequate surgical revascularization of the OM1. -Patent saphenous vein graft to the PDA with excellent surgical revascularization of the PDA and posterolateral branch Recommend: Trial of medical management with the addition of isosorbide mono ER 60 mg daily and ranolazine 1000 b.i.d. Lifelong dual antiplatelet therapy for diffuse severe diabetic coronary artery disease Continued high-intensity atorvastatin 80 mg daily, but consider adding ezetimibe for further reduction) total cholesterol 138, triglycerides 136, LDL 76, and HDL 45 02/11/2024 Comorbidities: Type 2 diabetes with circulatory and renal manifestations Hypertension Hyperlipidemia DAINA GOTTI MD Apr 01, 2024 17:59
--- NOTE | 2024-04-01 20:15 | EKG ---
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
--- NOTE | 2024-04-01 20:15 | EKG ---
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
[2024-04-01] MEDS: INSULIN humuLIN R 100 UNIT/ML 3ML SQ SCH (21:00)
[2024-04-01] MEDS: LISINOPRIL 40 MG TABLET PO SCH (21:17)
[2024-04-01] MEDS: carVEDIlol 12.5 MG TABLET PO SCH (21:18)
[2024-04-01 21:38] VITALS: O2SAT 99
--- NOTE | 2024-04-01 21:52 | NUR ---
MEDICATIONS HAVE BEEN RECONCILED.
[2024-04-02] MEDS: ondanSETRON 4MG INJ IVP PRN (00:16)
--- NOTE | 2024-04-02 06:15 | NUR ---
DR ESCOBAR AT BEDSIDE
--- NOTE | 2024-04-02 07:30 | NUR ---
Dr Jsoefa Lee at bedside.
--- NOTE | 2024-04-02 07:40 | NUR ---
Contacted Dr Garcia at the request of DR Lee to relay information to keep patient admitted one more night for new med evaluation.
--- NOTE | 2024-04-02 07:48 | PN ---
[facility] CARDIOLOGY PROGRESS NOTE Date Patient Seen: Apr 02, 2024 Time of Visit: 07:35 Interval History: This 63-year-old Latin-[place] male, patient of Dr. 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 His symptoms of angina if worsened over the one month prior to admission and he underwent cardiac catheterization 03/30/[address] Thee rey demonstrating a patent YIN to the distal LAD with a 90% apical LAD stenosis in a small distal LAD, a patent saphenous vein graft to the PDA with excellent surgical revascularization to the distal right coronary, and a patent saphenous vein graft to the OM1 with spiral tortuosity within the midbody of the vein graft associated with mild filling defect of uncertain significance. The patient was managed medically and presented to the emergency room today because of a recurrent episode of discomfort that concerned him. In the ER and EKG demonstrated sinus bradycardia with no evidence of ischemia or infarct. Serial troponins were six with a repeat troponin of seven. Physical Examination: GENERAL: No acute distress. HEAD: Normal with no signs of head trauma. EYES: PERRLA, EOMI, conjunctiva and sclera normal. NECK: Supple without JVD. There is no tenderness, lymphadenopathy, or masses. No thyromegaly. Normal carotid upstrokes without bruits. LUNGS: Clear breath sounds bilaterally. No wheezes, or rhonchi. HEART: Normal rate and rhythm. Normal S1 and S2 without murmurs, gallops or rub. VASC: Peripheral pulses +2 bilaterally. EXT: No clubbing, cyanosis or edema. NEURO: Awake, alert, and oriented x3. No focal neurological deficits noted. Laboratory: Hematology Labs: Test 04/01/24 12:10 Range/Units White Blood Count 7.3 4.8-10.8 K/uL Red Blood Count 4.27 L 4.50-6.20 MIL/uL Hemoglobin 10.6 L 14.0-18.0 g/dL Hematocrit 33.7 L 42-54 % Mean Corpuscular Volume 78.9 L 79-99 fL Mean Corpuscular Hemoglobin 24.8 L 27.0-33.0 pg Mean Corpuscular Hemoglobin Concent 31.5 L 32.0-36.0 g/dL Red Cell Distribution Width 14.7 11.0-15.5 % Platelet Count 212 130-400 K/uL Mean Platelet Volume 11.3 H 7.5-10.5 fL Immature Granulocyte % (Auto) 0.3 0-1 % Neutrophils (%) (Auto) 68.3 40.0-77.0 % Lymphocytes (%) (Auto) 23.0 21.0-51.0 % Monocytes (%) (Auto) 6.3 3.0-13.0 % Eosinophils (%) (Auto) 1.8 0.0-8.0 % Basophils (%) (Auto) 0.3 0.0-5.0 % Neutrophils # (Auto) 5.0 1.8-7.7 K/uL Lymphocytes # (Auto) 1.7 1.0-4.8 K/uL Monocytes # (Auto) 0.5 0.1-1.0 K/uL Eosinophils # (Auto) 0.13 0.00-0.70 K/uL Basophils # (Auto) 0.02 0.00-0.20 K/uL Absolute Immature Granulocyte (auto 0.02 0-1 K/uL Nucleated Red Blood Cells 0.0 0.0-0.19 % Chemistry Labs: Test 04/02/24 03:58 04/01/24 21:08 04/01/24 12:10 Range/Units Total Creatine Kinase 34 # 21-232 U/L Troponin I High Sensitivity 7.4 4-75 ng/L Whole Blood Glucose 148 H 70-110 MG/DL Sodium Level 141 136-145 mmol/L Potassium Level 4.6 3.5-5.1 mmol/L Chloride Level 104 101-111 mmol/L Carbon Dioxide Level 26 21-32 mmol/L Blood Urea Nitrogen 23 H 7-18 mg/dL Creatinine 1.7 H 0.5-1.3 mg/dL Glomerular Filtration Rate Calc 45 >90 mL/min Random Glucose 126 H 70-105 mg/dL Total Calcium 9.8 8.5-10.1 mg/dL Magnesium Level 1.60 L 1.80-2.40 mg/dL B-Type Natriuretic Peptide 55 0-100 pg/mL Diagnostics / Radiology: Impression and Plan: Coronary artery disease status post multiple prior PTCA and stent procedures in the past: Recurrent progressive angina status post remote coronary artery bypass surgery x3 vessels 02/15/2023 with YIN to the LAD, saphenous vein graft to the OM1, and saphenous vein graft to the PDA: 3/3 grafts patent by follow-up cardiac catheterization 03/30/2024 with severe [place] three-vessel coronary artery disease with chronic occlusion of the mid LAD, chronic occlusion of the mid left circumflex, and chronic occlusion of the distal RCA: -Patent YIN graft to the distal LAD with 90% apical LAD stenosis in a small ongoing distal/apical LAD, the ongoing distal LAD is a diabetic, diffusely diseased, small-vessel -Patent saphenous vein graft to the OM1 with spiral tortuosity in the midbody of the graft with associated mild sludge/filling defect of uncertain significance, with adequate surgical revascularization of the OM1.. The distal OM1 is a diabetic, diffusely diseased, small vessel. -Patent saphenous vein graft to the PDA with excellent surgical revascularization of the PDA and posterolateral branch. The ongoing PDA and posterolateral branches are diabetic, diffusely diseased, small distal vessels. Recommend: Trial of medical management with the addition of isosorbide mono ER 60 mg daily and ranolazine 1000 b.i.d. Begin progressive mobilization. The patient would like to be observed in the hospital during this trial of medical therapy over the next [address] hours[address] Discuss case [address] Dr. Thee Rey. Lifelong dual antiplatelet therapy for diffuse, severe, diabetic, coronary artery disease Continued high-intensity atorvastatin 80 mg daily, but consider adding ezetimibe for further reduction) total cholesterol 138, triglycerides 136, LDL 76, and HDL 45 02/11/2024 Comorbidities: Type 2 diabetes with circulatory and renal manifestations Hypertension Hyperlipidemia DAINA GOTTI MD Apr 02, 2024 07:48
[2024-04-02 09:26] LABS: CREATININE 1.6 mg/dL (0.5-1.3); POTASSIUM 4.5 mmol/L (3.5-5.1)
[2024-04-02 09:37] LABS: ALBUMIN 3.6 g/dL (3.5-5.0); BILIRUBIN,TOTAL 0.8 mg/dL (0.2-1.0); MAGNESIUM 2.1 mg/dL (1.80-2.40)
[2024-04-02] MEDS: PANTOPrazole 40 MG TAB DR PO SCH (10:37)
[2024-04-02] MEDS: cloPIDOgrel 75MG TAB PO SCH (10:37)
[2024-04-02] MEDS: ASPIRIN 81 MG EC TAB PO SCH (10:37)
[2024-04-02] MEDS: hydroCHLOROthiazide 25 MG TABLET PO SCH (10:38)
[2024-04-02] MEDS: atorVAStatin 40 MG TABLET PO SCH (10:39)
[2024-04-02] MEDS: EZETIMIBE 10 MG TAB PO SCH (10:39)
--- NOTE | 2024-04-02 12:04 | HP ---
ADMITTING HISTORY AND PHYSICAL CHIEF COMPLAINT: Chest pain. HISTORY OF PRESENT ILLNESS: A 63-year-old gentleman who has a cardiac cath done by Dr. Rey recently and the patient has a stent placements. On 03/30/2024, the patient found to have patent YIN and apical LAD distal stenosis. The patient is getting medical management at this time. The patient have episodes of chest pain with improvement with nitroglycerin and morphine and the patient has a CABG done on 03/04. The patient is hospitalized at this time for further management. PAST MEDICAL HISTORY: Significant for diabetes mellitus, hypertension, coronary artery disease. PAST SURGICAL HISTORY: Significant for CABG on 03/04. SOCIAL HISTORY: Denies history of smoking, alcohol or substances. FAMILY HISTORY: Noncontributory. REVIEW OF SYSTEMS: HEENT: Negative. CARDIOVASCULAR SYSTEM: Chest pain. RESPIRATORY SYSTEM: No shortness of breath. GASTROINTESTINAL SYSTEM: Nausea, but no vomiting, no diarrhea. GENITOURINARY SYSTEM: Negative. MUSCULOSKELETAL SYSTEM: Joint pains. ALLERGIES: As per the chart, no known drug allergies. MEDICATIONS: Plavix, atorvastatin, carvedilol, lisinopril, hydrochlorothiazide, nitroglycerin, metformin, pantoprazole. PHYSICAL EXAMINATION: GENERAL: The patient is awake, alert, oriented to person, place and time. VITAL SIGNS: Significant for blood pressure is 119/61, pulse is 37, respirations 16. HEENT: Pupils equal and reactive to light. Mucous membranes appear to be dry. NECK: Supple. LUNGS: Mostly decreased breath sounds. No wheeze or rhonchi. HEART: Regular rate and rhythm. ABDOMEN: Soft, nontender. EXTREMITIES: Noted. LABORATORY DATA: Significant for WBC 7.3, hemoglobin 10.6 and hematocrit is 33.7. Troponin is 7, creatinine is 1.7, sugar is 126, magnesium 1.6. ASSESSMENT AND PLAN: * Angina, which appears to be unstable angina with history of coronary artery disease, CABG on 03/04. The patient is on medical management and added Zetia, ranolazine, isosorbide at this time. The patient is going to be monitored closely. * Diabetes mellitus, on insulin. * Hypertension, stable. * Hyperlipidemia, added Zetia. Condition discussed. Questions answered. The patient is going to monitor closely. TID: [id number] RECEIPT: [id number]
[2024-04-02] MEDS: acetaMINOPHEN 325 MG TAB PO PRN (14:21)
--- NOTE | 2024-04-02 15:00 | NUR ---
DCP: HOME Sw met with pt and Lenore [phone]. Pt works at [employer], is active. Uses no DME or in home care services. PCP is Dr Parham and uses Janine Adams for rx. Pt denies dc needs and will return home with . Addendum: 04/02/24 at 1500 by DARLINE DURAND SS Amended: Links added.
--- NOTE | 2024-04-02 16:26 | NUR ---
patient placed on hospital bed. side rales up x2
--- NOTE | 2024-04-02 18:45 | NUR ---
page placed for Dr Garcia.
--- NOTE | 2024-04-03 08:00 | NUR ---
DR TITUS AT [facility]
--- NOTE | 2024-04-03 10:32 | PN ---
[facility] CARDIOLOGY PROGRESS NOTE Cardiology progress note dictated for Lucy Mcclure MD Date Patient Seen: Apr 03, 2024 Interval History: This 63-year-old Latin-Polish male, patient of Dr. 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 His symptoms of angina have worsened over the one month prior to admission and he underwent cardiac catheterization on 03/30/[address] Thee chandra demonstrating a patent YIN to the distal LAD with a 90% apical LAD stenosis in a small distal LAD, a patent saphenous vein graft to the PDA with excellent surgical revascularization to the distal right coronary, and a patent saphenous vein graft to the OM1 with spiral tortuosity within the midbody of the vein graft associated with mild filling defect of uncertain significance. He was managed medically and presented to the emergency room because of a recurrent episode of discomfort that concerned him. In the ER, his EKG demonstrated sinus bradycardia with no evidence of ischemia or infarct and serial troponins were normal x 5. He currently denies palpitations, dizziness, shortness of breath nausea, or vomiting, but does admit to intermittent left-sided chest discomfort. Bedside telemetry demonstrating NSR with bigeminal PACs with hr in the 60-70's. Physical Examination: GENERAL: No acute distress. HEAD: Normal with no signs of head trauma. EYES: PERRLA, EOMI, conjunctiva and sclera normal. NECK: Supple without JVD. There is no tenderness, lymphadenopathy, or masses. No thyromegaly. Normal carotid upstrokes without bruits. LUNGS: Clear breath sounds bilaterally. No wheezes, or rhonchi. HEART: Normal rate and rhythm. Normal S1 and S2. 1-2/6 PHILIPP heard at the Left 5th ICS MCL. VASC: Bilateral DP pulses 2+. EXT: No clubbing, cyanosis or edema. NEURO: Awake, alert, and oriented x3. No focal neurological deficits noted. Laboratory: Hematology Labs: Test 04/01/24 12:10 Range/Units White Blood Count 7.3 4.8-10.8 K/uL Red Blood Count 4.27 L 4.50-6.20 MIL/uL Hemoglobin 10.6 L 14.0-18.0 g/dL Hematocrit 33.7 L 42-54 % Mean Corpuscular Volume 78.9 L 79-99 fL Mean Corpuscular Hemoglobin 24.8 L 27.0-33.0 pg Mean Corpuscular Hemoglobin Concent 31.5 L 32.0-36.0 g/dL Red Cell Distribution Width 14.7 11.0-15.5 % Platelet Count 212 130-400 K/uL Mean Platelet Volume 11.3 H 7.5-10.5 fL Immature Granulocyte % (Auto) 0.3 0-1 % Neutrophils (%) (Auto) 68.3 40.0-77.0 % Lymphocytes (%) (Auto) 23.0 21.0-51.0 % Monocytes (%) (Auto) 6.3 3.0-13.0 % Eosinophils (%) (Auto) 1.8 0.0-8.0 % Basophils (%) (Auto) 0.3 0.0-5.0 % Neutrophils # (Auto) 5.0 1.8-7.7 K/uL Lymphocytes # (Auto) 1.7 1.0-4.8 K/uL Monocytes # (Auto) 0.5 0.1-1.0 K/uL Eosinophils # (Auto) 0.13 0.00-0.70 K/uL Basophils # (Auto) 0.02 0.00-0.20 K/uL Absolute Immature Granulocyte (auto 0.02 0-1 K/uL Nucleated Red Blood Cells 0.0 0.0-0.19 % Chemistry Labs: Test 04/03/24 08:08 04/02/24 09:02 04/01/24 12:10 Range/Units Whole Blood Glucose 132 H 70-110 MG/DL Sodium Level 139 136-145 mmol/L Potassium Level 4.5 3.5-5.1 mmol/L Chloride Level 103 101-111 mmol/L Carbon Dioxide Level 26 21-32 mmol/L Blood Urea Nitrogen 30 H 7-18 mg/dL Creatinine 1.6 H 0.5-1.3 mg/dL Glomerular Filtration Rate Calc 48 >90 mL/min Random Glucose 134 H 70-105 mg/dL Total Calcium 9.4 8.5-10.1 mg/dL Magnesium Level 2.10 1.80-2.40 mg/dL Total Bilirubin 0.8 0.2-1.0 mg/dL Aspartate Amino Transf (AST/SGOT) 10 10-37 U/L Alanine Aminotransferase (ALT/SGPT) 18 12-78 U/L Alkaline Phosphatase 70 50-136 U/L Total Creatine Kinase 41 # 21-232 U/L Troponin I High Sensitivity 7.0 4-75 ng/L Total Protein 7.0 6.0-8.3 g/dL Albumin 3.6 3.5-5.0 g/dL B-Type Natriuretic Peptide 55 0-100 pg/mL Diagnostics / Radiology: Impression and Plan: Coronary artery disease status post multiple prior PTCA and stent procedures in the past: Recurrent progressive angina status post remote CABGx3 vessels on 02/15/2023 with YIN-LAD, SVG-OM1, and SVG-PDA: 3/3 grafts patent by follow-up cardiac catheterization on 03/30/2024 with severe nikolai three-vessel CAD with chronic occlusion of the mid LAD, chronic occlusion of the mid left circumflex, and chronic occlusion of the distal RCA: Patent YIN graft to the distal LAD with 90% apical LAD stenosis in a small ongoing distal/apical LAD, the ongoing distal LAD is a diabetic, diffusely d iseased, small-vessel Patent saphenous vein graft to the OM1 with spiral tortuosity in the midbody of the graft with associated mild sludge/filling defect of uncertain significance, with adequate surgical revascularization of the OM1. The distal OM1 is a diabetic, diffusely diseased, small vessel. Patent saphenous vein graft to the PDA with excellent surgical revascularization of the PDA and posterolateral branch. The ongoing PDA and posterolateral branches are diabetic, diffusely diseased, small distal vessels. -Trial of medical management with the addition of isosorbide mono ER 60 mg daily and ranolazine 1000 b.i.d. with observation over 24hours -Continue Aspirin 81 mg daily, Atorvastatin 80 mg daily, Ezetimibe 10 mg daily, Clopidogrel 75 mg daily, Carvedilol 12.5 mg b.i.d., Ranolazine 1000 mg b.i.d., Isosorbide mononitrate 60 mg daily, Lisinopril 40 mg b.i.d., and Hydrochlorothi azide 25 mg daily -Begin progressive mobilization. -DC planning Comorbidities: Type 2 diabetes with circulatory and renal manifestations Hypertension Hyperlipidemia EVELYN [employer]SH[employer]OR [employer] Apr 03, 2024 10:32
--- NOTE | 2024-04-03 12:11 | PN ---
SUBJECTIVE: The patient has episode of chest pain, relieved with morphine. OBJECTIVE: VITAL SIGNS: Significant for blood pressure 97/50, pulse is 57, respirations 16. LUNGS: Mostly decreased breath sounds. No wheeze or rhonchi. HEART: Regular. ABDOMEN: Soft, nontender. ASSESSMENT AND PLAN: * Angina, the patient's medications adjusted. The patient is going to be monitored day. Coronary artery disease with CABG on 03/04. * Diabetes mellitus. * Hypertension. The patient is borderline hypertensive, which needs to be closely monitored. TID: [id number] RECEIPT: [id number]
--- NOTE | 2024-04-03 13:39 | PN ---
[facility] CARDIOLOGY PROGRESS NOTE Date Patient Seen: Apr 03, 2024 Time of Visit: 13:32 Problem List: [ Chest pain CAD s/p CABG HTN HLD ] Interval History: [ No acute events overnight. Pt states his chest pain is resolved at the moment. Long discussion held regarding plan and we will defer any invasive procedure and attempt medical mgt. If remains symptomatic we will consider coronary angiogram with possible PCI in the coming weeks. ] Physical Examination: GENERAL: [No acute distress.] HEAD: [Normal with no signs of head trauma.] EYES: [PERRLA, EOMI, conjunctiva and sclera normal.] ENT: [Hearing grossly intact, normal oropharynx.] NECK: [Supple without JVD. There is no tenderness, lymphadenopathy, or masses. No thyromegaly. Normal carotid upstrokes without bruits.] LUNGS: [Clear breath sounds bilaterally.. No wheezes, or rhonchi.] HEART: [Normal rate and rhythm. Normal S1 and S2 without mumurs, gallop or rub.] VASC: [Peripheral pulses +2 bilaterally.] ABD: [Bowel sounds normal, soft, nontender, no masses, no organomegaly. No audible bruits.] : [Not examined] LYMPH: [No lymphadenopathy noted.] EXT: [No clubbing, cyanosis or edema.] SKIN: [No rashes or lesions noted.] NEURO: [Awake, alert, and oriented x3. No focal sensory or strength deficits noted.] Laboratory: [ ] Chemistry Labs: Test 04/03/24 12:06 04/02/24 09:02 Range/Units Whole Blood Glucose 161 H 70-110 MG/DL Sodium Level 139 136-145 mmol/L Potassium Level 4.5 3.5-5.1 mmol/L Chloride Level 103 101-111 mmol/L Carbon Dioxide Level 26 21-32 mmol/L Blood Urea Nitrogen 30 H 7-18 mg/dL Creatinine 1.6 H 0.5-1.3 mg/dL Glomerular Filtration Rate Calc 48 >90 mL/min Random Glucose 134 H 70-105 mg/dL Total Calcium 9.4 8.5-10.1 mg/dL Magnesium Level 2.10 1.80-2.40 mg/dL Total Bilirubin 0.8 0.2-1.0 mg/dL Aspartate Amino Transf (AST/SGOT) 10 10-37 U/L Alanine Aminotransferase (ALT/SGPT) 18 12-78 U/L Alkaline Phosphatase 70 50-136 U/L Total Creatine Kinase 41 # 21-232 U/L Troponin I High Sensitivity 7.0 4-75 ng/L Total Protein 7.0 6.0-8.3 g/dL Albumin 3.6 3.5-5.0 g/dL Diagnostics / Radiology: [Copy/Paste Echos/Imaging Report here] Impression and Plan: [ Chest pain CAD s/p CABG HTN HLD # Angina: ACS ruled out. Pt recently underwent coronary angiogram last week finding severe multivessel CAD with patent YIN-LAD and SVG-OM [place] vessels not amenable to PCI. Was found to have a kink with sluggish flow to OM territory. YIN-LAD was patent but noted 70-80% lesion distal to YIN touchdown Given his complex coronary anatomy we will continue with aggressive medical mgt including BB, Nitrate, and Ranalazine If pt remains symptomatic despite optimization fo GDT we will consider staged revasc of his OM graft kink and distal LAD Continue DAPT (Asa/Plvix) plus Lipitor 40mg qhs. Continue coreg, Imdur and ranalazine TTE with a preserved systolic function with no wall motion abnormalities. Pt can be DCed from the CV standpoint and will need close outpt Cardiology follow up within 1-2 weeks post DC Strict ER precautions given Thank you for this consult. cardiology will sign off at this time. Nelia Rey MD] NELIA REY MD Apr 03, 2024 13:39
[2024-04-03 14:53] VITALS: BP 107/59; PULSE 55; RESP 16; TEMP 98.5; O2SAT 99
--- NOTE | 2024-04-04 06:51 | DS ---
ADMITTING DIAGNOSES: * Unstable angina. * Other diagnoses, coronary artery disease, coronary artery bypass grafting, diabetes mellitus and hypertension. DISCHARGE DIAGNOSES: * Unstable angina, stable. Medications adjusted to Ranexa, isosorbide. * Hypotensive episode, monitor closely. * Coronary artery disease, stable. CONDITION AT TIME OF DISCHARGE: Stable. PROGNOSIS: Fair. DISCHARGE MEDICATIONS: Continue with Ranexa, isosorbide. Follow up with the primary physician as an outpatient. HOSPITAL COURSE: The patient is hospitalized with unstable angina. Cardiac enzymes normal. The patient evaluated by Cardiology. Conservative treatment. Coronary artery disease with recent CABG, stable. Hypertension, stable hyperlipidemia, stable. Continue with the present management. TID: [id number] RECEIPT: [id number] cc:
[2024-04-11] MEDS ORDERED: ISOS30TA92 PO (16:45)
[2024-04-11] MEDS ORDERED: NITR0.4T50 SL (16:45)
== END 2024-04-03 15:17 | disposition home or self-care (01) ==
LOC: EDH 11:41 → EDHIP 16:43 → INTOOBSV 16:43 → EDHIP 04-03 15:11
PROVIDERS: ADMIT Family Medicine; ATTEND Family Medicine
DX: I25.110 Atherosclerotic heart disease of native coronary artery with unstable angina pectoris (principal); I12.9 Hypertensive chronic kidney disease with stage 1 through stage 4 chronic kidney disease, or unspecified chronic kidney disease; E11.22 Type 2 diabetes mellitus with diabetic chronic kidney disease; N18.9 Chronic kidney disease, unspecified; I95.9 Hypotension, unspecified; E83.42 Hypomagnesemia; D63.8 Anemia in other chronic diseases classified elsewhere; E78.5 Hyperlipidemia, unspecified; Z79.82 Long term (current) use of aspirin; Z79.84 Long term (current) use of oral hypoglycemic drugs; Z79.4 Long term (current) use of insulin; Z79.899 Other long term (current) drug therapy; Z95.1 Presence of aortocoronary bypass graft; Z95.5 Presence of coronary angioplasty implant and graft
CPT/HCPCS: 96376 ×3; 96361 ×3; 99285; 82550 ×3; 83735 ×2; 84484 ×5; 80048; 83880; 85025; 82948 ×7; 36415 ×2; 71045; 96365; 96375; 93005 ×2; 96372; 80053; J3475; J2270 ×7; J7030 ×3; J2405 ×4; G0378 ×21; J1815